=== PATIENT | female | born 1955 | race Caucasian/White ===

== ENCOUNTER → 2021-08-05 09:01 | Outpatient (BNVA) | payer MEDICARE, SELFPAY | PROVIDERS: Visit Provider Family Medicine | DX: Z01.419 Encounter for gynecological examination (general) (routine) without abnormal findings (principal); Z13.6 Encounter for screening for cardiovascular disorders | CPT/HCPCS: 80053; 80061; 85025; 88175 ==

== ENCOUNTER 2022-03-16 12:30 | Outpatient (CLI) | payer MEDICARE, SELFPAY ==
--- NOTE | 2022-03-16 13:12 | XR_ITS ---
WS: [id number] SCREENING DEXA SCAN [facility] CLINICAL INFORMATION: ASYMPTOMATIC MENOPAUSAL STATE COMPARISON: None. FINDINGS: The L1-L4 bone mineral density measures 0.897 g/cm2. This corresponds to a T score score of -2.4 and Z score of -1.1. Left femoral neck bone mineral density measures 0.663 g/cm2. This corresponds to a T score of -2.7 an d Z score of -1.7. Right femoral neck bone mineral density measures 0.643 g/cm2. This corresponds to a T score -2.9of an d Z score of -1.9. Mean femoral neck bone mineral density measures 0.653 g/cm2. This corresponds to a T score of -2.8 an d Z score of -1.8. XR/XR DEXA axial skeleton* [id number] IMPRESSION: Osteopenia lumbar spine upper end of the range. Osteoporosis femoral necks. Patient's FRAX calculated 10 year probability for major osteoporotic fracture i s 30.9 % and osteoporotic hip fracture is 8.5%.
--- NOTE | 2022-03-16 13:16 | MM_ITS ---
WS: [id number] Bilateral screening 3D tomosynthesis digital mammogram, 03/16/2022 Clinical Data: SCREENING Comparison: None. Findings: The breast parenchymal pattern shows fibroglandular tissue. No spiculated masses or clustered calcifi cations are seen. There are no secondary signs of carcinoma. There are mole markers on both breasts. MM/[place] [id number] Impression: 1. Negative bilateral mammogram with no prior exam for review. 2. Recommend annual screening mammograms. BIRADS: 1-Negative FOLLOW UP: 1 Year Follow-up The CAD steel checker was used.
== END 2022-03-16 12:31 | disposition home or self-care (01) ==
LOC: RAD 12:31
PROVIDERS: PCP Family Medicine; Visit Provider Family Medicine
DX: Z12.31 Encounter for screening mammogram for malignant neoplasm of breast (principal); Z78.0 Asymptomatic menopausal state; M85.88 Other specified disorders of bone density and structure, other site
CPT/HCPCS: 77063; 77067; 77080

== ENCOUNTER → 2024-11-18 08:49 | Outpatient (BNVA) | payer MEDICARE, SELFPAY | PROVIDERS: PCP Family Medicine; Visit Provider Dermatology | DX: L90.5 Scar conditions and fibrosis of skin (principal); L81.9 Disorder of pigmentation, unspecified; L73.8 Other specified follicular disorders; L82.1 Other seborrheic keratosis; L72.0 Epidermal cyst; D22.39 Melanocytic nevi of other parts of face; L81.5 Leukoderma, not elsewhere classified; D48.5 Neoplasm of uncertain behavior of skin; L82.0 Inflamed seborrheic keratosis; R20.8 Other disturbances of skin sensation; L53.8 Other specified erythematous conditions; L29.89 Other pruritus | CPT/HCPCS: 11104; 17110; 99203 ==